=== PATIENT | female | born 1955 | race Caucasian/White ===

== ENCOUNTER 2018-11-07 07:21 | Outpatient (CLI) | payer OTHER | END 2018-11-07 07:28 | disposition home or self-care (01) | LOC: SONOGRAMA 07:21 | DX: E04.1 Nontoxic single thyroid nodule (principal) ==

== ENCOUNTER 2025-02-08 10:01 | Outpatient (CLI) | payer OTHER | END 2025-02-08 10:07 | disposition home or self-care (01) | LOC: SONOGRAMA 10:01 | PROVIDERS: ATTEND Pathology Anatomic Pathology & Clinical Pathology | DX: D34 Benign neoplasm of thyroid gland (principal); E07.89 Other specified disorders of thyroid; E04.2 Nontoxic multinodular goiter ==